=== PATIENT | female | born 1945 | race Caucasian/White ===

== ENCOUNTER 2016-11-06 22:55 | Emergency (ER) | payer OTHER, BC ==
[2016-11-06 23:02] VITALS: BP 138/78; PULSE 82; TEMP 97.9; BMI 28.6
[2016-11-07] MEDS ORDERED: valACYclovir HCL 1000 MG TABLET PO ONE (00:10)
--- NOTE | 2016-11-07 00:13 | PDOC ---
[id number] 71 year old female with significant medical hx of shingles, DM type II, and asthma who is presenting to the ED with burning and itching sensation to the skin of her left abdomen that began prior to arrival. The patient states that her symptoms are similar to when she had a shingles episode two years ago and decided to come to the ED for further evaluation. <Angella Centeno - Last Filed: 11/07/16 00:26> - General History Source: Patient Exam Limitations: No Limitations <Aaron Degroot - Last Filed: 11/10/16 08:54> - General Chief Complaint: Pain, Acute Stated Complaint: SHINGLES Time Seen by Provider: 11/06/16 23:53 Past History <Angella Centeno - Last Filed: 11/07/16 00:26> - Past Medical History Asthma: Yes Cardiac Disorders: Yes Disorders: Yes (UTIs PYLONEPHRITIS) - Immunization History Immunization Up to Date: Yes - Psycho/Social/Smoking Cessation Hx Anxiety: Yes Suicidal Ideation: No Smoking Status: No Smoking History: Never smoked Have you smoked in the past 12 months: No Number of Cigarettes Smoked Daily: 0 Hx Alcohol Use: No Substance Use Type: None <Aaron Degroot - Last Filed: 11/10/16 08:54> - Past Medical History Allergies/Adverse Reactions: Allergies Allergy/AdvReac Type Severity Reaction Status Date / Time nitrofurantoin Allergy Severe Difficulty Verified 11/06/16 22:59 [From Macrobid] Breathing nitrofurantoin Allergy Severe Difficulty Verified 11/06/16 22:59 macrocrystalline Breathing [From Macrobid] Penicillins Allergy Severe Difficulty Verified 11/06/16 22:59 Breathing ciprofloxacin [From Cipro] Allergy Verified 11/06/16 22:59 ciprofloxacin HCl Allergy Verified 11/06/16 22:59 [From Cipro] Sulfa (Sulfonamide Allergy Verified 11/06/16 22:59 Antibiotics) STRAWBERRIES AdvReac Mild Rash Uncoded 11/06/16 22:59 Home Medications: Ambulatory Orders Alprazolam [Xanax] 0.25 mg PO PRN PRN 03/09/15 Valacyclovir HCl [Valtrex] 1,000 mg PO TID #21 tablet 11/07/16 Review of Systems - Review of Systems Comments:: 11/07/16 00:27 GENERAL/CONSTITUTIONAL: No fever or chills. No weakness. HEAD, EYES, EARS, NOSE AND THROAT: No change in vision. No ear pain or discharge. No sore throat. CARDIOVASCULAR: No chest pain or shortness of breath. RESPIRATORY: No cough, wheezing, or hemoptysis. GASTROINTESTINAL: No nausea, vomiting, diarrhea or constipation. GENITOURINARY: No dysuria, frequency, or change in urination. MUSCULOSKELETAL: No joint or muscle swelling or pain. No neck or back pain. SKIN: Burning and itching to skin of left abdomen. No rash NEUROLOGIC: No headache, vertigo, loss of consciousness, or change in strength/ sensation. <Angella Centeno - Last Filed: 11/07/16 00:26> - Review of Systems Comments:: 11/10/16 08:54 CORRECTION TO SCRIBE NOTE: It is on the right side, not the left side. <Aaron Degroot - Last Filed: 11/10/16 08:54> *Physical Exam - Vital Signs Last Vital Signs Temp Pulse Resp BP Pulse Ox 97.9 F 82 16 138/78 99 11/06/16 23:00 11/06/16 23:00 11/06/16 23:00 11/06/16 23:00 11/06/16 23:00 - Physical Exam Comments: 11/07/16 00:27 GENERAL: Awake, alert, and fully oriented, in no acute distress HEAD: No signs of trauma EYES: PERRLA, EOMI, sclera anicteric, conjunctiva clear ENT: Auricles normal inspection, hearing grossly normal, nares patent, oropharynx clear without exudates. Moist mucosa NECK: Normal ROM, supple, no lymphadenopathy, JVD, or masses LUNGS: Breath sounds equal, clear to auscultation bilaterally. No wheezes, and no crackles HEART: Regular rate and rhythm, normal S1 and S2, no murmurs, rubs or gallops ABDOMEN: Soft, nontender, normoactive bowel sounds. No guarding, no rebound. No masses EXTREMITIES: Normal range of motion, no edema. No clubbing or cyanosis. No cords, erythema, or tenderness NEUROLOGICAL: Cranial nerves II through XII grossly intact. Normal speech, normal gait SKIN: Tenderness to palpation on the skin on the right side T6. Warm, Dry, normal turgor, no rashes or lesions noted. ENDOCRINE: No increased thirst. No abnormal weight change. HEMATOLOGIC/LYMPHATIC: No anemia, easy bleeding, or history of blood clots. ALLERGIC/IMMUNOLOGIC: No hives or skin allergy. <TarynAngella - Last Filed: 11/07/16 00:26> - Vital Signs Last Vital Signs Temp Pulse Resp BP Pulse Ox 97.9 F 82 16 138/78 99 11/06/16 23:00 11/06/16 23:00 11/06/16 23:00 11/06/16 23:00 11/06/16 23:00 <Aaron Degroot - Last Filed: 11/10/16 08:54> ED Treatment Course - Medications Given in the ED: ED Medications Discontinued Medications Generic Name Dose Route Start Last Admin Trade Name Freq PRN Reason Stop Dose Admin Valacyclovir HCl 1,000 mg 11/07/16 00:10 11/07/16 00:12 Valtrex - PO 11/07/16 00:11 1,000 mg ONCE ONE Administration <Angella Centeno - Last Filed: 11/07/16 00:26> Medical Decision Making - Medical Decision Making 11/07/16 00:14 A portion of this note was documented by scribe services under my direction. I have reviewed the details of the note, within reason, and agree with the documentation with the following case summary and management plan written by me. Patient treated in the ED. Nursing notes are reviewed and incorporated into the medical decision-making. Vital signs reviewed. Peripheral IV access obtained by the nurse, laboratory studies are drawn and sent, reviewed and interpreted by myself. Vital Signs Temp Pulse Resp BP Pulse Ox 97.9 F 82 16 138/78 99 11/06/16 23:00 11/06/16 23:00 11/06/16 23:00 11/06/16 23:00 11/06/16 23:00 71-year-old female with history of type 2 diabetes, asthma, appears younger than her stated age presents with beginning stages of shingles. The patient has had prior history of shingles and reports that today, she felt this burning- like sensation on the T6 distribution of her dermatome on the right side. States that this felt exactly like her prior shingles. No rashes lesions had occurred. Patient is otherwise well-appearing. We'll give valtrex. Contact shingles precautions given. Pt verbalizes understanding and agrees with planning. I discussed the physical exam findings, ancillary test results and final diagnoses with the patient. I answered all of the patient's questions. The patient was satisfied with the care received and felt comfortable with the discharge plan and treatment plan. The patient will call their primary care physician within 24 hours to arrange follow-up and will return to the Emergency Department with any new, persistant or worsening symptoms. <Aaron Degroot - Last Filed: 11/10/16 08:54> *DC/Admit/Observation/Transfer - Attestations Scribe Attestion: 11/07/16 00:28 Documentation prepared by Angella Centeno, acting as director medical surgical for Aaron Degroot MD. <Angella Centeno - Last Filed: 11/07/16 00:26> - Discharge Dispostion Admit: No <Aaron Degroot - Last Filed: 11/10/16 08:54> Diagnosis at time of Disposition: Herpes zoster Qualifiers: Herpes zoster complications: without complications Qualified Code(s): B02.9 - Zoster without complications - Discharge Dispostion Disposition: HOME Condition at time of disposition: Stable - Prescriptions Prescriptions: Valacyclovir HCl [Valtrex] 1,000 mg PO TID #21 tablet - Patient Instructions Printed Discharge Instructions: DI for Shingles Additional Instructions: Take 1 gram of valtrex every 8 hours for 1 week. Follow up with your doctor. When your rash develops, you will be contagious. Please take caution and be aware of who you are around with.
== END 2016-11-07 00:35 | disposition home or self-care (01) ==
LOC: JER 22:55
DX: B02.9 Zoster without complications (principal); E11.9 Type 2 diabetes mellitus without complications; J45.909 Unspecified asthma, uncomplicated
CPT/HCPCS: 99282-25

== ENCOUNTER 2019-05-19 10:52 | Emergency (ER) | payer OTHER, BC ==
[2019-05-19 11:02] VITALS: TEMP 98.4; BMI 28.6
--- NOTE | 2019-05-19 11:10 | PDOC ---
History of Present Illness <Qing Moreau - Last Filed: 05/19/19 14:54> <Eneida Henry - Last Filed: 05/19/19 15:07> - General Chief Complaint: Hemoptysis Stated Complaint: COUGH Time Seen by Provider: 05/19/19 11:09 Past History - Past Medical History Asthma: Yes Cancer: Yes (BLADDER (ON IMMUNOTHERAPY)) Cardiac Disorders: No COPD: No Diabetes: Yes (TYPEII) Disorders: Yes (UTIs PYLONEPHRITIS) - Immunization History Immunization Up to Date: Yes - Psycho Social/Smoking Cessation Hx Smoking Status: No Smoking History: Never smoked Have you smoked in the past 12 months: No Number of Cigarettes Smoked Daily: 0 Information on smoking cessation initiated: No Hx Alcohol Use: No Drug/Substance Use Hx: No Substance Use Type: None <Qing Moreau - Last Filed: 05/19/19 14:54> <Eneida Henry - Last Filed: 05/19/19 15:07> - Past Medical History Allergies/Adverse Reactions: Allergies Allergy/AdvReac Type Severity Reaction Status Date / Time nitrofurantoin Allergy Severe Difficulty Verified 05/19/19 11:02 [From Macrobid] Breathing nitrofurantoin Allergy Severe Difficulty Verified 05/19/19 11:02 macrocrystalline Breathing [From Macrobid] Penicillins Allergy Severe Difficulty Verified 05/19/19 11:02 Breathing ciprofloxacin [From Cipro] Allergy Verified 05/19/19 11:02 ciprofloxacin HCl Allergy Verified 05/19/19 11:02 [From Cipro] Sulfa (Sulfonamide Allergy Verified 05/19/19 11:02 Antibiotics) STRAWBERRIES AdvReac Mild Rash Uncoded 05/19/19 11:02 Home Medications: Ambulatory Orders Alprazolam [Xanax] 0.25 mg PO PRN PRN 03/09/15 Valacyclovir HCl [Valtrex] 1,000 mg PO TID #21 tablet 11/07/16 Albuterol Sulfate Inhaler - [Ventolin HFA Inhaler -] 1 - 2 inh PO QID PRN #1 inhaler 05/19/19 Benzonatate [Tessalon Pearls -] 100 mg PO TID #21 capsule 05/19/19 *Physical Exam - Vital Signs Last Vital Signs Temp Pulse Resp BP Pulse Ox 98.4 F 87 20 128/64 96 05/19/19 10:56 05/19/19 10:56 05/19/19 10:56 05/19/19 10:56 05/19/19 10:56 <LizzethQing - Last Filed: 05/19/19 14:54> - Vital Signs Last Vital Signs Temp Pulse Resp BP Pulse Ox 98.4 F 87 20 128/64 96 05/19/19 10:56 05/19/19 10:56 05/19/19 10:56 05/19/19 10:56 05/19/19 10:56 <HenryDavieEneida Otispérez - Last Filed: 05/19/19 15:07> Heart Score/ECG Review #1 ECG reviewed & interpreted by me at: 14:45 General ECG Interpretation: Sinus Rhythm, Normal Rate, Normal Intervals Compared to previous ECG there are: Previous ECG unavail <HenryEneida - Last Filed: 05/19/19 15:07> ED Treatment Course - LABORATORY CBC & Chemistry Diagram: 05/19/19 11:56 05/19/19 11:56 <Qing Moreau - Last Filed: 05/19/19 14:54> - LABORATORY CBC & Chemistry Diagram: 05/19/19 11:56 05/19/19 11:56 - ADDITIONAL ORDERS Additional order review: Laboratory Results 05/19/19 05/19/19 05/19/19 11:56 11:56 11:56 PT with INR Cancelled INR Cancelled PTT (Actin FS) D-Dimer 657 H Sodium 137 Potassium 4.4 Chloride 103 Carbon Dioxide 27 Anion Gap 7 L BUN 10.2 Creatinine 0.6 Est GFR (CKD-EPI)AfAm 104.07 Est GFR (CKD-EPI)NonAf 89.79 Random Glucose 87 Calcium 9.0 Total Bilirubin 0.7 AST 20 ALT 16 Alkaline Phosphatase 74 Creatine Kinase Troponin I Total Protein 7.0 Albumin 3.3 L 05/19/19 05/19/19 11:56 11:56 PT with INR 11.20 INR 0.95 PTT (Actin FS) 32.2 D-Dimer Sodium Potassium Chloride Carbon Dioxide Anion Gap BUN Creatinine Est GFR (CKD-EPI)AfAm Est GFR (CKD-EPI)NonAf Random Glucose Calcium Total Bilirubin AST ALT Alkaline Phosphatase Creatine Kinase 53 Troponin I < 0.02 Total Protein Albumin 05/19/19 11:56 RBC 4.33 MCV 92.0 MCHC 32.9 RDW 13.2 MPV 7.6 Neutrophils % 61.5 D Lymphocytes % 27.1 D Monocytes % 9.1 Eosinophils % 1.7 Basophils % 0.6 - Medications Given in the ED: ED Medications Discontinued Medications Generic Name Dose Route Start Last Admin Trade Name Fremary ann PRN Reason Stop Dose Admin Albuterol/Ipratropium 1 amp 05/19/19 14:22 05/19/19 14:32 Duoneb - NEB 05/19/19 14:23 1 amp ONCE ONE Administration Diphenhydramine HCl 50 mg 05/19/19 12:47 05/19/19 14:03 Benadryl - PO 05/19/19 12:48 50 mg ONCE ONE Administration <ElaineEneida Janice - Last Filed: 05/19/19 15:07> Medical Decision Making - Medical Decision Making HPI: 74yo F with PMH of bladder CA with metastasis treated currently with immunotherapy, asthma, diabetes presenting with hemoptysis. Patient states she has had a cough productive of green-yellow sputum for the past five days. She has some shortness of breath which she associated with coughing fits. Also reporting some chest tightness, but not pain. No associated nausea, vomiting, or diaphoresis. Patient presents today because about one hour prior to arrival, she started coughing up bright red blood, such that her tissue visibly showed blood (which is at the bedside). She has never had this before. No recent surgical history, no recent immobilization, no hormone use, no history of DVT or PE. Denies fever and chills. PCP: Dr. Rosales Peters ROS: Constitutional: no fever, no chills HEENT: no throat pain, no dysphagia Cardiovascular: no chest pain, no palpitations Respiratory: +cough, +shortness of breath Gastrointestinal: no abdominal pain, no nausea Genitourinary: no dysuria, no hematuria Musculoskeletal: no myalgia, no arthralgia Skin: no rash, no itching Neurologic: no headache, no weakness PE: General: Awake, alert, and fully oriented, in no acute distress Head: No signs of trauma Eyes: EOMI, reddened sclera with watery discharge ENT: Moist mucus membranes Neck: Normal ROM, supple Lungs: Lungs clear, Normal breath sounds Cardio: Regular rhythm, S1 and S2 present Abdomen: Soft, nontender. No guarding, no rebound, no masses Extremities: Normal range of motion, Distal pulses present, No calf tenderness SKIN: Warm, Dry, normal turgor Neurologic: Cranial nerves II through XII grossly intact. Normal speech ED Course/MDM: DDX including but not limited to PE, PNA, bronchitis, ACS, anemia, metabolic derangement Labs, CXR 05/19/19 11:10 CBC WBC 10.2 K/mm3 (4.0-10.0) H 05/19/19 11:56 RBC 4.33 M/mm3 (3.60-5.2) 05/19/19 11:56 Hgb 13.1 GM/dL (10.7-15.3) 05/19/19 11:56 Hct 39.8 % (32.4-45.2) 05/19/19 11:56 MCV 92.0 fl (80-96) 05/19/19 11:56 MCH 30.3 pg (25.7-33.7) 05/19/19 11:56 MCHC 32.9 g/dl (32.0-36.0) 05/19/19 11:56 RDW 13.2 % (11.6-15.6) 05/19/19 11:56 Plt Count 289 K/MM3 (134-434) 05/19/19 11:56 MPV 7.6 fl (7.5-11.1) 05/19/19 11:56 Absolute Neuts (auto) 6.3 K/mm3 (1.5-8.0) 05/19/19 11:56 Neutrophils % 61.5 % (42.8-82.8) D 05/19/19 11:56 Lymphocytes % 27.1 % (8-40) D 05/19/19 11:56 Monocytes % 9.1 % (3.8-10.2) 05/19/19 11:56 Eosinophils % 1.7 % (0-4.5) 05/19/19 11:56 Basophils % 0.6 % (0-2.0) 05/19/19 11:56 Nucleated RBC % 0 % (0-0) 05/19/19 11:56 Mild leukocytosis CMP Sodium 137 mmol/L (136-145) 05/19/19 11:56 Potassium 4.4 mmol/L (3.5-5.1) 05/19/19 11:56 Chloride 103 mmol/L (98-107) 05/19/19 11:56 Carbon Dioxide 27 mmol/L (21-32) 05/19/19 11:56 Anion Gap 7 MMOL/L (8-16) L 05/19/19 11:56 BUN 10.2 mg/dL (7-18) 05/19/19 11:56 Creatinine 0.6 mg/dL (0.55-1.3) 05/19/19 11:56 Est GFR (CKD-EPI)AfAm 104.07 05/19/19 11:56 Est GFR (CKD-EPI)NonAf 89.79 05/19/19 11:56 Random Glucose 87 mg/dL (74-106) 05/19/19 11:56 Calcium 9.0 mg/dL (8.5-10.1) 05/19/19 11:56 Total Bilirubin 0.7 mg/dL (0.2-1) 05/19/19 11:56 AST 20 U/L (15-37) 05/19/19 11:56 ALT 16 U/L (13-61) 05/19/19 11:56 Alkaline Phosphatase 74 U/L (45-117) 05/19/19 11:56 Creatine Kinase 53 U/L (26-192) 05/19/19 11:56 Troponin I < 0.02 ng/ml (0.00-0.05) 05/19/19 11:56 Total Protein 7.0 g/dl (6.4-8.2) 05/19/19 11:56 Albumin 3.3 g/dl (3.4-5.0) L 05/19/19 11:56 Electrolytes unremarkable Cr normal Tpn undetectable 05/19/19 12:23 CXR: "Unremarkable contour of the cardiomediastinal silhouette. The lungs are well aerated without evidence of pneumonia atelectasis, or CHF. No pneumothorax , or large pleural effusion is seen. No evidence of blunting of the costophrenic angles, effacement of the diaphragms. No evidence of bulky hilar adenopathy. The visualized osseous structures appear intact. Degenerative changes are observed in the upper lumbosacral spine. Impression. No evidence of active pulmonary disease. No pneumothorax, or large pleural effusion is seen. " Pending CT chest report 05/19/19 13:59 CT Chest: "FINDINGS: There is no evidence of pneumothorax, pulmonary nodule, effusion or infiltrate. No gross endobronchial lesion is identified. Left ventral parenchymal scar is noted as seen on prior exam. Thoracic aorta shows no evidence of aneurysmal dilatation or dissection. Cardiac structures are grossly within normal limits. Coronary Arteries show no significant calcification. No significant axillary or mediastinal lymphadenopathy is appreciated. Limited evaluation the upper abdomen shows hepatic and splenic parenchyma to be within normal limits. IMPRESSION: No evidence of acute pulmonary process" Cough is likely viral in nature given negative CT chest. We will treat with duoneb. 05/19/19 14:23 Patient states she feels better after the breathing treatment. As age-adjusted D-dimer is negative, I have low suspicion for DVT/PE. Patient also without infiltrate on Chest CT. No abx indicated at this time. We will treat her for acute bronchitis; the hemoptysis is likely from forceful coughing Albuterol and Tessalon perles sent to pharmacy. 05/19/19 14:54 <Qing Moreau - Last Filed: 05/19/19 14:54> Discharge - Discharge Information Problems reviewed: Yes <Qing Moreau - Last Filed: 05/19/19 14:54> <Eneida Henry - Last Filed: 05/19/19 15:07> - Discharge Information Clinical Impression/Diagnosis: Bronchitis Condition: Stable Disposition: HOME - Additional Discharge Information Prescriptions: Albuterol Sulfate Inhaler - [Ventolin HFA Inhaler -] 1 - 2 inh PO QID PRN #1 inhaler PRN Reason: Cough Benzonatate [Tessalon Pearls -] 100 mg PO TID #21 capsule - Follow up/Referral Referrals: Rosales Peters [Primary Care Provider] - - Patient Discharge Instructions Patient Printed Discharge Instructions: DI for Acute Bronchitis Additional Instructions: You were seen in the emergency department for cough. We did blood work which was within normal limits. Your Chest X-Ray and CT of your chest did not show a pneumonia. You do not need antibiotics. You received a breathing treatment while you were here. Follow-up with your primary care doctor this week to discuss this visit and to further evaluate your symptoms. Call tomorrow morning and make an appointment. Your workup is not complete until you do so. We sent a prescription to your pharmacy. Take as instructed. Continue taking home medications as prescribed. Call for emergency medical services or go to the emergency room right away if any of the following occurs: Difficulty breathing, unrelieved by medications Tightness in chest, unrelieved by medications If you think you have an emergency, call for medical help right away. - Post Discharge Activity Work/Back to School Note: Back to Work
[2019-05-19 12:20] LABS: BASO % 0.6 % (0-2.0); EOS % 1.7 % (0-4.5); HEMATOCRIT 39.8 % (32.4-45.2); HEMOGLOBIN 13.1 GM/dL (10.7-15.3); LYMPH % 27.1 % (8-40); MCH 30.3 pg (25.7-33.7); MCHC 32.9 g/dl (32.0-36.0); MEAN PLT VOLUME 7.6 fl (7.5-11.1); MONO % 9.1 % (3.8-10.2); NEUT % 61.5 % (42.8-82.8); PLATELET COUNT 289 K/MM3 (134-434); RBC 4.33 M/mm3 (3.60-5.2); RDW 13.2 % (11.6-15.6); WHITE BLOOD COUNT 10.2 K/mm3 (4.0-10.0)
--- NOTE | 2019-05-19 12:25 | PDOC ---
Documentation entered by Ivette Torres SCRIBE, acting as scribe for Eneida Henry MD. Eneida Henry MD: This documentation has been prepared by the Brian dueñas Adrianna, SCRIBE, under my direction and personally reviewed by me in its entirety. I confirm that the documentation accurately reflects all work, treatment, procedures, and medical decision making performed by me. Attending Attestation - Resident Resident Name: Qing Moreau - ED Attending Attestation I have performed the following: I have examined & evaluated the patient, The case was reviewed & discussed with the resident, I agree w/resident's findings & plan - HPI HPI: 05/19/19 12:29 The patient is a 74 year old female, with a significant PMH of asthma, bladder cancer (on immunotherapy), DMII, and pyelonephritis, presenting with hemoptysis today. She has been experiencing nasal congestion, cough x 5 days since last week, a/w eye itching and clear discharge/conjunctivitis.. - Physicial Exam PE: 05/19/19 12:24 Agree with the resident's HPI and PE as documented in the electronic medical record. NAD, well appearing, EOMI, PERRL, MMM, nl conjunctiva, anicteric; neck supple. lungs clear, RRR, abdomen soft nontender. Back nontender. ROSALES x4, no focal neuro deficits. No peripheral edema. normal color for ethnicity, WWP. - Medical Decision Making 05/19/19 12:24 See HPI for details. Prior notes reviewed, including admissions, discharges and consultations. Vital signs reviewed, wnl. Vital Signs Temp Pulse Resp BP Pulse Ox 98.4 F 87 20 128/64 96 05/19/19 10:56 05/19/19 10:56 05/19/19 10:56 05/19/19 10:56 05/19/19 10:56 DDX bronchitis, bronchiectasis, pneumonia, pleurisy, PE, viral syndrome, URI Well's score 2 for malignancy and hemoptysis, 16.2% chance of PE dimer_neg age adjusted <740, so unlikely PE, defer further imaging or testing, as also with IV contrast allergy remainder of labs and lytes wnl. neg trop, unlikely cardiac etiology or ACS. no cp or sob, well appearing otherwise, nontoxic, no systemic findings. CXR clear, no acute pathology could be bronchitis vs infection, given conjunctivitis and respiratory sx. CT chest to check for pna, if neg likely viral and avoid abx given multiple allergies to abx (such as macrobid, quinolones, pcns, bactrim/sulfas) negative for infectious etiology/pna or effusion/edema no abx indicated. no systemic findings or sx, no fever, and no findings on imaging, given risk outweighing benefits. as likely viral mediated acute bronchitis supportive care, cough drops/tessalon perles prn, albuterol inh prn for cough. DC stable condition, pmd followup. return precautions 05/19/19 15:00
[2019-05-19 12:46] LABS: INR 0.95 (0.83-1.09); PROTHROMBIN TIME (PATIENT) 11.2 SEC (9.7-13.0)
[2019-05-19] MEDS ORDERED: diphenhydrAMINE HCL 25 MG CAPSULE (FP) PO ONE ×2 (12:47→13:58)
[2019-05-19 12:48] LABS: ALBUMIN 3.3 g/dl (3.4-5.0); BILIRUBIN,TOTAL 0.7 mg/dL (0.2-1); BLOOD UREA NITROGEN 10.2 mg/dL (7-18); CREATININE 0.6 mg/dL (0.55-1.3); POTASSIUM 4.4 mmol/L (3.5-5.1)
[2019-05-19 12:49] LABS: ACTIVATED PTT 32.2 SECONDS (25.2-36.5)
[2019-05-19] MEDS ORDERED: ALBUTEROL SO4 2.5/IPRATROPIUM 0.5 INH SOL 3 ML VIAL.NEB. NEB ONE (14:22)
[2019-05-19 15:08] VITALS: BP 136/77; PULSE 82
--- NOTE | 2019-05-19 16:19 | EKG ---
Test Reason : Blood Pressure : / mmHG Vent. Rate : 074 BPM Atrial Rate : 074 BPM P-R Int : 134 ms QRS Dur : 062 ms QT Int : 408 ms P-R-T Axes : 043 001 010 degrees QTc Int : 452 ms NORMAL SINUS RHYTHM NORMAL ECG WHEN COMPARED WITH ECG OF 10-DEC-2007 11:36, NO SIGNIFICANT CHANGE WAS FOUND Confirmed by DONNA PINA MD ([id number]) on 05/19/2019 4:19:52 PM Referred By: Confirmed By:DONNA PINA MD
== END 2019-05-19 15:02 | disposition home or self-care (01) ==
LOC: JER 10:52
PROC: 3E0F7GC Introduction of Other Therapeutic Substance into Respiratory Tract, Via Natural or Artificial Opening (ICD-10-PCS; principal; 2019-05-19)
DX: J20.9 Acute bronchitis, unspecified (principal); J45.909 Unspecified asthma, uncomplicated; E11.9 Type 2 diabetes mellitus without complications; Z85.51 Personal history of malignant neoplasm of bladder; Z87.440 Personal history of urinary (tract) infections; Z88.0 Allergy status to penicillin; Z88.2 Allergy status to sulfonamides; Z88.1 Allergy status to other antibiotic agents; Z91.018 Allergy to other foods
CPT/HCPCS: 36415; 71046-TC-FY; 71250-TC; 80053; 82550; 84484; 85025; 85379; 85610; 85730; 93005; 93010; 93971-TC; 99283-25